=== PATIENT | female | born 1995 | race African-American/Black ===

== ENCOUNTER 2023-03-22 18:16 | Emergency (ER) | payer SELFPAY ==
[~2023-03-22] VITALS: Ht 165.1 cm; Wt 90.0 kg
[2023-03-22 18:37] VITALS: TEMP 98.7; O2SAT 100
[2023-03-22 19:14] LABS: CLARITY URINE TURBID (CLEAR); COLOR URINE DARK YELLOW (YELLOW); GLUCOSE URINE NEGATIVE (NEGATIVE); KETONES URINE TRACE (NEGATIVE); LEUKOCYTE ESTERASE URINE TRACE (NEGATIVE); NITRITE URINE NEGATIVE (NEGATIVE); OCCULT BLOOD URINE 3+ (NEGATIVE); PH URINE 7.5 (4.5-8.0); PROTEIN URINE 2+ (NEGATIVE); SPECIFIC GRAVITY URINE 1.032 (1.005-1.030)
[2023-03-22] MEDS ORDERED: LIDOCAINE HCL/PF 1% 10 MG/ML 5ML VIAL INFIL ONE ×2 (19:30→21:00)
[2023-03-22] MEDS ORDERED: BACITRACIN ZINC OINT UDPKT TOP ONE (19:30)
[2023-03-22] MEDS ORDERED: KETOROLAC 30MG/ML VIAL IM ONE (19:30)
[2023-03-22 19:41] LABS: BACTERIA URINE 3+; SQUAMOUS EPITHELIAL CELL URINE 2+ /lpf (RARE/1+)
[2023-03-22 19:43] LABS: AMORPHOUS SEDIMENT URINE 1+ /lpf; TRIPLE PHOSPHATE CRYSTAL URINE 2+ /lpf; WBC URINE 0-2 /hpf (0-2)
[2023-03-22 19:44] LABS: TRICHOMONAS URINE 2+
[2023-03-22 20:40] LABS: BASOPHILS % 0.4 % (0.0-2.0); EOSINOPHILS % 0.4 % (0.0-5.0); HEMOGLOBIN. 13.3 g/dL (12.0-16.0); LYMPHOCYTES % 17.2 % (20.0-50.0); MEAN CORPUSCULAR HEMOGLOBIN 26.7 pg (28.0-32.0); MEAN CORPUSCULAR HGB CONC 32.4 g/dL (31.0-37.0); MEAN CORPUSCULAR VOLUME 82.2 fL (81.0-99.0); MEAN PLATELET VOLUME 8.3 fl (7.4-10.4); MONOCYTES % 5.6 % (2.0-8.0); NEUTROPHILS % 76.4 % (40.0-76.0); PLATELET 428 x1000/uL (130-400); RED BLOOD CELL COUNT 4.99 mill/uL (4.2-5.4); RED CELL DISTRIBUTION WIDTH 13.3 % (11.6-14.6); WHITE BLOOD COUNT 8.9 x1000/uL (4.5-11.0)
[2023-03-22 20:47] LABS: CHLORIDE 108 mEq/L (98-107); INDEX HEMOLYSI 1 (1-3); INDEX ICTERIC 1 (1-4); INDEX LIPEMIC 1 (1-3); POTASSIUM 3.8 mEq/L (3.5-5.1); SODIUM 139 mEq/L (136-145)
[2023-03-22 20:56] LABS: ALANINE AMINOTRANSFERASE 27 IU/L (13-61); ALBUMIN 3.5 g/dL (3.4-5.0); ASPARTATE AMINOTRANSFERASE 19 IU/L (15-37); BILIRUBIN TOTAL 0.2 mg/dL (0.1-1.0); CALCIUM 9.3 mg/dL (8.5-10.1); CARBON DIOXIDE 29 mEq/L (21-32); CREATININE 0.9 mg/dL (0.6-1.3); GLUCOSE 106 mg/dL (70-105); PROTEIN TOTAL 9.1 g/dL (6.0-8.3); UREA NITROGEN BLOOD 12 mg/dL (7-21)
[2023-03-22] MEDS ORDERED: SULF1TAB48 MT ×2 (21:02)
[2023-03-22] MEDS ORDERED: CEPH500C2 MT ×2 (21:02)
[2023-03-22] MEDS ORDERED: METR375C2 MT (21:09)
[2023-03-22] MEDS ORDERED: DICL500C MT (21:09)
[2023-03-22 21:15] VITALS: BP 110/65; PULSE 87; RESP 16
[2023-03-22] MEDS ORDERED: CEFTRIAXONE SODIUM 1 G/VIAL IM ONE (21:15)
[2023-03-22] MEDS ORDERED: AZITHROMYCIN 500 MG TABLET PO ONE (21:15)
[2023-03-22] MEDS ORDERED: ONDANSETRON HCL 4MG TABLET PO ONE (21:15)
== END 2023-03-22 22:23 | disposition home or self-care (01) ==
LOC: ER 18:16
DX: K61.1 Rectal abscess (principal); A59.03 Trichomonal cystitis and urethritis
CPT/HCPCS: 80053; 81003; 81025; 85025; 36415; 71045; 96372; 99284; Q0162; J0696; J1885; J3490; Z7610 ×5

== ENCOUNTER 2023-03-24 12:43 | Emergency (ER) | payer SELFPAY ==
[~2023-03-24] VITALS: Ht 167.6 cm; Wt 81.0 kg
[~2023-03-24 12:43] MED LIST: DICL500C MT; METR375C2 MT
[2023-03-24 12:56] VITALS: BP 119/80; PULSE 89; RESP 20; TEMP 98.7; O2SAT 99
== END 2023-03-24 14:15 | disposition home or self-care (01) ==
LOC: ER 13:13
DX: L02.31 Cutaneous abscess of buttock (principal); Z98.890 Other specified postprocedural states
CPT/HCPCS: 99281